=== PATIENT | female | born 1995 | race African-American/Black ===

== ENCOUNTER → 2022-03-13 11:20 | Outpatient (CLI) | payer OTHER, SELFPAY ==
[2022-03-13 14:07] LABS: TSH w/ Reflex to FT4 0.63 uIU/mL (0.47-4.68)
[2022-03-13 14:11] LABS: Prolactin 19.6 ng/mL (3.0-18.6)
[2022-03-13 14:37] LABS: Follicle Stimulating Hormone 5.95 mIU/mL; Luteinizing Hormone 2.97 mIU/mL
== END ==
PROVIDERS: Referring Provider Nurse Practitioner Obstetrics & Gynecology; Visit Provider Nurse Practitioner Obstetrics & Gynecology
DX: N91.4 Secondary oligomenorrhea (principal)
CPT/HCPCS: 36415; 82670; 83001; 83002; 84146; 84443

== ENCOUNTER → 2022-04-19 12:31 | Outpatient (CLI) | payer OTHER, SELFPAY ==
--- NOTE | 2022-04-19 | DI.US.S_ITS ---
PROCEDURE: US PELVIC COMPLETE INDICATIONS: SECONDARY AMENORRHEA TECHNIQUE: Real-time scanning was performed of the pelvic organs, with image documentation. Additional endovaginal scanning was necessary due to incomplete visualization of the adnexal and endometrial structures by transabdominal scanning. COMPARISON: None. FINDINGS: Uterus: Uterus is anteverted and normal in size at 7.0 x 3.7 x 4.4 cm. The myometrium is homogeneous. The endometrium measures 6.4 mm combined thickness. In the lower uterine segment, there is an ovoid slightly hyperechoic mass measuring 0.8 x 0.4 by 0.6 cm with internal vascularity. Just distal to this is a small cystic space. Fundal endometrium is also slightly heterogeneous. Ovaries: The right ovary measures 2.2 x 2.2 x 2.4 cm, with a calculated ovarian volume of 6.0 cc. The left ovary measures 3.0 x 2.6 x 2.1 cm, with a calculated ovarian volume of 8.5 cc. There is a simple follicle measuring 2.3 cm in the left ovary. Less than 12 follicles can be seen in each ovary. No adnexal masses are seen. Other: No pathologic free abdominal or pelvic fluid. IMPRESSION: 1. Echogenic vascular polyp in the lower uterine segment endometrium. 2. Normal ovaries with a dominant left follicle. We strive to produce accurate, complete, and clear reports of imaging services. To assist us in improving patient care, this report was composed using standard report templates and voice recognition software. Therefore, it may contain abnormal punctuation, insertions and/or omissions. Occasional wrong-word or sound-alike substitutions may occur. Though we review the report and make efforts to correct it, we do recommend that the report be read carefully in proper context to recognize any text inaccuracies. Dictated by: Karmen Rashid M.D. on 04/19/2022 at 17:28 Approved by: Karmen Rashid M.D. on 04/19/2022 at 17:32
== END ==
PROVIDERS: Referring Provider Nurse Practitioner Obstetrics & Gynecology; Visit Provider Nurse Practitioner Obstetrics & Gynecology
DX: N91.1 Secondary amenorrhea (principal); N84.0 Polyp of corpus uteri
CPT/HCPCS: 76830; 76856

== ENCOUNTER → 2022-10-08 12:27 | Outpatient (CLI) | payer OTHER, SELFPAY ==
[2022-10-08 13:37] LABS: Influenza A - CEPHEID Flu A NEGATIVE (NEGATIVE); Influenza B - CEPHEID Flu B NEGATIVE (NEGATIVE); Respiratory Syncytial Virus Negative (Negative)
[2022-10-08 13:39] LABS: COVID-19 CEPHEID 4-PLEX PCR Negative (Negative)
== END ==
PROVIDERS: Visit Provider Physician Assistant
DX: R05.9 Cough, unspecified (principal)
CPT/HCPCS: 0241U

== ENCOUNTER → 2023-09-02 14:12 | Outpatient (CLI) | payer OTHER, SELFPAY ==
--- NOTE | 2023-09-02 | DI.US.S_ITS ---
PROCEDURE: US OB >= 14 WEEKS FETUS INDICATIONS: 20 WEEK ANATOMY SCAN OUTSIDE/PRIOR DATING DATA: Last menstrual period (LMP): April 09, 2023. LMP-based estimated date of delivery (HAYDER): January 19, 2024. First dating scan (date and location): Not performed. Estimated date of delivery (HAYDER) from first dating scan: Not applicable. The calculations are made using the clinical HAYDER of January 19, 2024. TECHNIQUE: Real-time scanning was performed of the fetus, with image documentation and biometric measurements. Endovaginal scanning: Not performed COMPARISON: None. FINDINGS: General: A single living intrauterine gestation is present. Presentation: Vertex. Placenta: Placental position is posterior , without previa. Amniotic fluid index: 16.2 cm, normal range is 5-24 cm. Single deepest vertical pocket is 4.4 cm. heart rate: 127 beats per minute. Maternal cervical canal: 3.7 cm long. Normal lower limit is 2.5 cm. biometrics: Biparietal diameter: 4.9 cm, 20 weeks and 6 days Head circumference: 17.9 cm, 20 weeks and 2 days Abdominal circumference: 17.0 cm, 22 weeks and 0 days Femur length: 3.5 cm, 21 weeks and 1 day Clinically estimated gestational age: 20 weeks and 1 day Composite gestational age from present scan: 21 weeks and 1 day Estimated weight and percentile: 423 g, 97th percentile Anatomic survey: Neuro: Ventricles are non-dilated at less than 10 mm. Cisterna magna is normal at 3-11 mm. Cerebellum is normal in size and morphology. Nuchal skin fold: Normal at less than 6 mm between 14-21 weeks gestational age. Face: Nose and lips, facial profile are normal. Spine: No evidence for spina bifida. Heart: 4-chambered heart is present, with normal ventricular outflow tracts. There is a nonspecific 2.8 mm echogenic focus in the left ventricle. Diaphragm: Diaphragm is intact. Stomach: Left-sided stomach is present. Kidneys: No hydronephrosis. Normal is less than 5 mm in 2nd trimester, less than 7 mm in 3rd trimester. Cord: 3-vessel cord has orthotopic insertion. Bladder: Normal in size. Extremities: All 4 extremities identified. IMPRESSION: Single living intrauterine gestation with estimated sonographic gestational age of approximately 21 weeks and 1 day versus approximately 20 weeks and 1 day by last menstrual period. Dating is concordant. Estimated weight of 423 g which correlates with the 97th percentile. There is a 2.8 mm echogenic focus in the left ventricle which is a nonspecific finding and can be seen in to 20% of normal fetuses. This may represent the normal papillary muscle or cordae tendineae. Recommend correlation with maternal risk factors and further evaluation as clinically appropriate. Otherwise, unremarkable routine second trimester anatomic screening survey. We strive to produce accurate, complete, and clear reports of imaging services. To assist us in improving patient care, this report was composed using standard report templates and voice recognition software. Therefore, it may contain abnormal punctuation, insertions and/or omissions. Occasional wrong-word or sound-alike substitutions may occur. Though we review the report and make efforts to correct it, we do recommend that the report be read carefully in proper context to recognize any text inaccuracies. Dictated by: Brian Aldana M.D. on 09/02/2023 at 15:34 Approved by: Brian Aldana M.D. on 09/02/2023 at 15:59
== END ==
PROVIDERS: Referring Provider Nurse Practitioner Obstetrics & Gynecology; Visit Provider Nurse Practitioner Obstetrics & Gynecology
DX: Z34.92 Encounter for supervision of normal pregnancy, unspecified, second trimester (principal); Z3A.20 20 weeks gestation of pregnancy
CPT/HCPCS: 76811

== ENCOUNTER → 2023-09-26 08:01 | Outpatient (CLI) | payer OTHER, SELFPAY ==
[2023-09-26 08:57] LABS: Hematocrit 32.5 % (36-46); Mean Corpuscular Hemoglobin 28.4 PG (26-34); Mean Corpuscular Volume 83.7 fL (80-100); Platelet Count 257 X10^3/uL (150-400); Red Blood Cell Count 3.88 X10^6/uL (4.0-5.2); Red Cell Distribution Width 13.7 % (11.6-14.8); White Blood Cell Count 11.7 X10^3/uL (4.5-11.0)
[2023-09-26 09:38] LABS: Glucose Fasting 80 mg/dL (70-100)
[2023-09-26 10:22] LABS: Glucose 1 Hour 117 mg/dL (70-170)
[2023-09-26 10:31] LABS: Glucose Tol Interpretation INTERPRETATION
[2023-09-26 11:06] LABS: Glucose 2 Hour 103 mg/dL (70-140)
== END ==
PROVIDERS: Referring Provider Nurse Practitioner Obstetrics & Gynecology; Visit Provider Nurse Practitioner Obstetrics & Gynecology
DX: Z34.90 Encounter for supervision of normal pregnancy, unspecified, unspecified trimester (principal); Z13.1 Encounter for screening for diabetes mellitus; Z3A.26 26 weeks gestation of pregnancy
CPT/HCPCS: 36415; 82951; 82952; 85027

== ENCOUNTER → 2023-11-08 11:12 | Outpatient (CLI) | payer OTHER, SELFPAY ==
--- NOTE | 2023-11-08 11:13 | DI.US.S_ITS ---
PROCEDURE: US OB LIMITED INDICATIONS: GROWTH OUTSIDE/PRIOR DATING DATA: First dating scan (date and location): 09/02/2023. Estimated date of delivery (HAYDER) from first dating scan: 01/19/2024. TECHNIQUE: Real-time scanning was performed of the fetus, with image documentation and biometric measurements. Delete COMPARISON: None. FINDINGS: General: A single living intrauterine gestation is present. Presentation: Vertex. Placenta: Placental position is posterior , without previa. Amniotic fluid index: 17.2 cm, normal range is 5-24 cm. Single deepest vertical pocket is 5.0 cm. heart rate: 153 beats per minute. Maternal cervical canal: 4.2 cm long. Normal lower limit is 2.5 cm. biometrics: Biparietal diameter: 30 weeks 4 days Head circumference: 30 weeks 2 days Abdominal circumference: 29 weeks 4 days Femur length: 29 weeks 6 days Clinically estimated gestational age: 29 weeks 5 Composite gestational age from present scan: 30 weeks 1 day Estimated weight and percentile: 1451 g; 39th percentile Other: Not applicable. IMPRESSION: 1. Single living IUP redemonstrated and interval growth is normal. We strive to produce accurate, complete, and clear reports of imaging services. To assist us in improving patient care, this report was composed using standard report templates and voice recognition software. Therefore, it may contain abnormal punctuation, insertions and/or omissions. Occasional wrong-word or sound-alike substitutions may occur. Though we review the report and make efforts to correct it, we do recommend that the report be read carefully in proper context to recognize any text inaccuracies. Dictated by: Byron DA SILVA Interpreted: Capo Soriano MD on 11/08/2023 at 13:15 Transcribed by: WANDA on 11/08/2023 at 13:19 Approved by: Capo Soriano M.D. on 11/08/2023 at 17:05
== END ==
PROVIDERS: Referring Provider Advanced Practice Midwife; Visit Provider Advanced Practice Midwife
DX: O26.843 Uterine size-date discrepancy, third trimester (principal); Z3A.30 30 weeks gestation of pregnancy
CPT/HCPCS: 76815

== ENCOUNTER → 2023-11-14 09:27 | Outpatient (CLI) | payer OTHER, SELFPAY ==
[2023-11-14 10:16] LABS: Influenza A - CEPHEID Flu A NEGATIVE (NEGATIVE); Influenza B - CEPHEID Flu B NEGATIVE (NEGATIVE); Respiratory Syncytial Virus Negative (Negative)
[2023-11-14 10:29] LABS: COVID-19 CEPHEID 4-PLEX PCR POSITIVE (Negative)
== END ==
PROVIDERS: Visit Provider Physician Assistant
DX: R05.1 Acute cough (principal)
CPT/HCPCS: 0241U

== ENCOUNTER → 2023-12-12 14:41 | Outpatient (CLI) | payer OTHER, SELFPAY ==
--- NOTE | 2023-12-12 14:44 | DI.US.S_ITS ---
PROCEDURE: US OB LIMITED INDICATIONS: GROWTH OUTSIDE/PRIOR DATING DATA: Last menstrual period (LMP): 04/09/2023. LMP-based estimated date of delivery (HAYDER): 01/19/2024 First dating scan (date and location): Unknown. Estimated date of delivery (HAYDER) from first dating scan: Unknown. The calculations are made using the clinical HAYDER of 01/19/2024. TECHNIQUE: Real-time scanning was performed of the fetus, with image documentation and biometric measurements. Biophysical profile was also obtained. COMPARISON: [facility], OB LIMITED, 11/08/2023, 11:37. FINDINGS: General: A single living intrauterine gestation is present. Presentation: Vertex. Placenta: Placental position is posterior , without previa. Amniotic fluid index: 11.3 cm, normal range is 5-24 cm. Single deepest vertical pocket is 3.5 cm. heart rate: 126 beats per minute. Maternal cervical canal: 4.0 cm long. Normal lower limit is 2.5 cm. biometrics: Biparietal diameter: 8.4 cm 33 weeks 6 days Head circumference: 30.4 cm 33 weeks 6 days Abdominal circumference: 30.9 cm 34 weeks 6 days Femur length: 6.7 cm 34 weeks 4 days Clinically estimated gestational age: 34 weeks 4 days Composite gestational age from present scan: 34 weeks 2 days Estimated weight and percentile: 2454 g 44th percentile Biophysical profile: IMPRESSION: Single live intrauterine with ultrasound gestational age today of 24 weeks 2 days. ZHANE measures 11.3. We strive to produce accurate, complete, and clear reports of imaging services. To assist us in improving patient care, this report was composed using standard report templates and voice recognition software. Therefore, it may contain abnormal punctuation, insertions and/or omissions. Occasional wrong-word or sound-alike substitutions may occur. Though we review the report and make efforts to correct it, we do recommend that the report be read carefully in proper context to recognize any text inaccuracies. Dictated by: Isabella Rojas M.D. on 12/12/2023 at 20:27 Approved by: Isabella Rojas M.D. on 12/12/2023 at 20:30
[2023-12-12 16:29] LABS: Hematocrit 32.8 % (36-46); Hemoglobin 10.9 g/dL (12.0-16.0); Mean Corpuscular HGB Conc 33.4 % (30-36); Mean Corpuscular Hemoglobin 27.7 PG (26-34); Platelet Count 264 X10^3/uL (150-400); Red Blood Cell Count 3.95 X10^6/uL (4.0-5.2); Red Cell Distribution Width 13.9 % (11.6-14.8); White Blood Cell Count 11.8 X10^3/uL (4.5-11.0)
== END ==
PROVIDERS: Referring Provider Advanced Practice Midwife; Visit Provider Advanced Practice Midwife
DX: O26.843 Uterine size-date discrepancy, third trimester; Z13.1 Encounter for screening for diabetes mellitus; Z3A.34 34 weeks gestation of pregnancy
CPT/HCPCS: 36415; 76815; 85027

== ENCOUNTER 2023-12-15 12:20 | Outpatient (CLI) | payer OTHER, SELFPAY ==
--- NOTE | 2023-12-15 12:42 | PM.OBTRLD ---
Visit Information Visit Information Date of evaluation: 12/15/23 Primary OB Provider: Gudelia Wing On-call OB Provider: Lizz Wood Comments/Additional reasons for admission: Armani Barnes 28yo, @ 35w0d based on 6 week bedside US presenting to triage for elevated blood pressures at work (145/88, 158/93), increased edema, and concerns for decreased movement. Edema is significant in her fee/t/ankles and mild in her hands. Denies headache, vision changes, or RUQ pain. Noticed a decrease in movement today, though she has felt some movement. Denies cramping, vaginal bleeding, or leaking of fluids. Uncomplicated care w/CNMs. Taking a daily LDASA. Vital Signs Vital Signs: Serial BPs: -136/69 -129/63 -133/67 -120/75 -120/69 HR: 92 T: 98.6 F (temporal) PFSH Medical History ADHD Anxiety Cough Viral URI Viral URI with cough Social History marital status: household members: spouse lives independently: Yes caregiver/support person: No housing: apartment Smoking Status: Never smoker Review of Systems Review of Systems ROS: Yes All systems reviewed with the patient and are negative except as otherwise documented Integumentary/Breasts Comments: swelling bilaterally in hands, feet, and ankles. Neurologic Comments: numbness in fingers (all except pinky finger). Exam Vital Signs (past 8 hours): See above. Const General: cooperative, healthy appearing and comfortable Nutritional Appearance: obese Orientation: alert, awake and oriented x3 Chest Chest: normal inspection of the chest Resp Effort & Inspection: normal respiratory effort and able to speak in complete sentences Presentation: vertex Neuro Sensory Exam: other (slight numbness on thumb, index, and middle finger bilaterally) Extrem Right upper extremity: edema (mild edema noted on hands and wrists) Left upper extremity: edema (mild edema noted on hands and wrists) Right lower extremity: edema (on foot, ankle, and lower calves) Details: 1+ Left lower extremity: edema (on foot, ankle, and lower calves) Details: 1+ Objective Labs 12/15/23 13:07 02/01/24 13:07 Labs: NV:CR 0.22 Evaluation Evaluation Baseline heart rate: 120 Variability: Moderate (11-25) monitor accelerations: Present Monitor Decelerations: Absent Category of Tracing: Reactive Comments: Uterine irritability, not felt by client. Diagnosis, Plan/Disposition Final Diagnosis (1) Elevated blood pressure reading without diagnosis of hypertension: Status: Acute (2) Carpal tunnel syndrome during : Status: Acute Plan/Disposition Plan: A: Late [place] Reactive NST Normotensive P: Baseline preeclampsia panel completed and normal. Discharge to home with routine precautions: labor, preeclamsia neurologic sx and decreased FM Continue taking LDASA Recommended elevating feat above heart when possible for lower extremity swelling relief and wearing compression stockings Recommended wearing wrist braces at night for carpal tunnel relief RTC as previously scheduled on 12/21/23
[2023-12-15 13:14] LABS: Add Manual Diff / Slide Review NO; Basophils Absolute Auto 100 /uL (0-100); Basophils Percent Auto 0.7 % (0-2); Eosinophils Absolute Auto 100 /uL (0-450); Hematocrit 31.9 % (36-46); Hemoglobin 10.8 g/dL (12.0-16.0); Lymphocytes Absolute Auto 1600 /uL (1100-4500); Lymphocytes Percent Auto 13.9 % (25-40); Mean Corpuscular Hemoglobin 27.9 PG (26-34); Mean Corpuscular Volume 82.2 fL (80-100); Monocytes Absolute Auto 900 /uL (0-900); Monocytes Percent Auto 8.1 % (3-14); Neutrophils Absolute Auto 8800 /uL (1500-7000); Neutrophils Percent Auto 76.3 % (50-75); Platelet Count 265 X10^3/uL (150-400); Red Blood Cell Count 3.88 X10^6/uL (4.0-5.2); Red Cell Distribution Width 14.1 % (11.6-14.8); White Blood Cell Count 11.6 X10^3/uL (4.5-11.0)
[2023-12-15 13:20] LABS: Creatinine Urine Random 61.3 mg/dL; Protein (Total) Urine Random 14 mg/dL (0-12); Protein Creatinine Ratio Urine 0.22 GRAM/24H
[2023-12-15 13:28] LABS: Aspartate Aminotransferase 22 IU/L (14-36); BUN Creatinine Ratio 11.3 (6-22); Blood Urea Nitrogen 6 mg/dL (7-17); Estimated Glomerular Filt Rate > 60 mL/min (>60); Uric Acid 3.7 mg/dL (2.5-6.2)
[2023-12-15 13:29] LABS: Alanine Aminotransferase 12 IU/L (<35); Albumin 3.2 g/dL (3.5-5.0); Albumin Globulin Ratio 0.9 (1.0-2.8); Alkaline Phosphatase 83 U/L (38-126); Aspartate Aminotransferase 26 IU/L (14-36); Bilirubin Total 0.4 mg/dL (0.2-1.3); Blood Urea Nitrogen 6 mg/dL (7-17); Calcium 8.9 mg/dL (8.4-10.2); Carbon Dioxide 22 mmol/L (22-32); Chloride 105 mmol/L (98-107); Estimated Glomerular Filt Rate > 60 mL/min (>60); Globulin 3.4 g/dL (1.7-4.1); Glucose 86 mg/dL (70-100); HEMOLYSIS < 15 (0-50); Potassium 4.1 mmol/L (3.4-5.1); Sodium 133 mmol/L (137-145); Total Protein 6.6 g/dL (6.3-8.2)
== END 2023-12-15 13:46 | disposition home or self-care (01) ==
LOC: LABOR 13:20 → OB 12-20 06:18
PROVIDERS: Referring Provider Nurse Practitioner Obstetrics & Gynecology; Visit Provider Nurse Practitioner Obstetrics & Gynecology
DX: O26.893 Other specified pregnancy related conditions, third trimester (principal); O12.03 Gestational edema, third trimester; O36.8130 Decreased fetal movements, third trimester, not applicable or unspecified; Z3A.35 35 weeks gestation of pregnancy; R03.0 Elevated blood-pressure reading, without diagnosis of hypertension; G56.00 Carpal tunnel syndrome, unspecified upper limb
CPT/HCPCS: 36415; 59025; 80053; 82570; 84156; 84450; 84550; 85025; G0378; G0379

== ENCOUNTER 2024-01-22 12:47 | Inpatient (IN) | payer OTHER, SELFPAY ==
--- NOTE | 2024-01-22 13:34 | PM.OBHP.1 ---
OB HPI Date/Time Date of admission: 01/22/24 Date Patient Seen: 01/22/24 Time Patient Seen: 13:15 History of Present Condition Chief complaint: labor : 1 Para: 0 Estimated Date of Delivery: 01/19/24 Estimated Gestational Age (weeks): 40w3d Narrative: Armani Barnes is a 28 year old female who is admitted to our L&D unit for early labor and ROM. HAYDER 01/19/2024 was determined by early ultrasound. Armani had an uneventful with CNMs; started her with BMI 41 and did have COVID infection at 31 weeks. Took LDASA throughout when she remembered. Normal anatomy scan with EFW 97%. Growth ultrasounds were performed twice during showing EFW of 39% at 29 weeks and 44% at 34 weeks. Armani believes she began leaking fluid at 1400 yesterday after membrane sweep. Was having mild, irregular contractions all day. Strong recommendation was made 01/21/24 at 2200 when Armani called to report possible ROM to come to unit for evaluation and to confirm ROM. At that time, she refused. [place] a gush of fluid at 0800, contractions more intense and regular today. Again recommended coming in this morning at 0900; she opted to arrive at 1300 today. Now feeling contractions about every 5 minutes, can talk through them. Baby has been moving normally throughout early labor. Armani's goal is to have a low-intervention vaginal . She agreed to pitocin augmentation but declined SVE at this time but declines SVE right now. Denies headache, visual changes, epigastric pain. Feeling contractions low in her pelvis. History of Present care: good care, initiated at week # (6), number of visits (12) and pounds weight gain (43) Dating criteria: based on 1st trimester US only Ultrasounds: normal 1st trimester US and normal mid trimester US Obstetrical complications: none Medical complications: psychiatric (ADHD) and other (Covid at 31 weeks, Pre- BMI 41.) Preadmission Labs Blood type: A (+) positive -: Antibody screen: negative, Cystic fibrosis screen: unknown, GBS status: positive, HBsAG: negative, HIV: negative, HSV 1: unknown, HSV 2: unknown and RPR/VDLR: negative -: Chlamydia screen: not detected and Gonorrhea screen: not detected -: Rubella: immune and Varicella: immune HCT: 32.8 (@ 34w) HCAB: negative PAP: Normal (09/2022) Quad screen: Normal (MsAFP negative at 15w) Cell-free DNA: Negative, XX Urine: negative UC at 10w Narrative: 2 hour GTT: Fastin 1 hour: 117 2 hour: 103 Prior (ies) History: none Evaluation Evaluation Baseline heart rate: 130 Variability: Moderate (11-25) monitor accelerations: Present Monitor Decelerations: Absent Contraction Frequency (minutes): 5 Uterine Contraction Intensity: Mild Status: Category l Non-invasive Membranes Rupture Test: positive Comments: ROM time unclear; possibly as long ago as 1400 01/21/24. No gushes until this morning at 0800. Positive amnisure on admission (1300 today). SVE declined. [facility] Medical History (Updated 01/22/24 @ 13:53 by uJlita Easton CNM, [place]) Supervision of normal first in third trimester ADHD Anxiety Cough Viral URI Viral URI with cough Social History marital status: household members: spouse lives independently: Yes caregiver/support person: No housing: apartment Smoking Status: Never smoker Meds Home Medications and Allergies Home Medications Medication Instructions Recorded Confirmed Type aspirin 81 mg tablet,delayed 81 mg PO DAILY 01/22/24 01/22/24 History release Allergies Allergy/AdvReac Type Severity Reaction Status Date / Time pollen extracts Allergy Mild ITCHING Verified 01/22/24 13:58 banana Allergy Severe Anaphylaxis Uncoded 01/22/24 13:58 watermelon Allergy Severe Anaphylaxis Uncoded 01/22/24 13:58 NKDA Allergy Unknown Uncoded 01/22/24 13:58 Review of Systems Review of Systems Narrative: All negative except as stated in HPI. OB Exam Vital signs Blood Pressure: 138/75 Pulse Rate: 85 Respiratory Rate: 16 Temperature: 96.8 F Resp Effort & Inspection: normal respiratory effort and able to speak in complete sentences Auscultation: clear to auscultation bilaterally Cardio Rate: regular rate Rhythm: regular rhythm Heart Sounds: S1 normal, S2 normal and normal, physiologic split S2 Presentation: vertex Estimated Weight (lbs): 8 Amniotic Fluid: clear Objective Labs 01/22/24 14:00 01/22/24 14:25 Labs: Protein Creatinine ratio is 0.3 but without hypertension. Assessment and Plan Assessment and Plan Assessment and Plan narrative: at 4ow3d by early ultrasound GBS positive FHR Cat 1 Membranes ruptured, assuming 24 hours at 1400 today. Afebrile Rh positive History of ADHD Pre- BMI 41 History of Chlamydia 2021 Plan: Admit to labor unit Administer ampicillin for GBS prophylaxis PET panel with admission labs for baseline Recommend continous monitoring due to prolonged ROM. GC/CT ordered due to last swab collected 09/2022 as test of cure for chlamydia infection. Recommend augmentation of labor with misoprostol or pitocin due to length of PROM. Sumr agrees to pitocin. Bedside ultrasound to confirm vertex presentation. Temp & BP q 1-2 hours. Anticipate NSVB.
[2024-01-22 14:04] VITALS: BP 138/75; PULSE 85; RESP 16; TEMP 36
[2024-01-22] MEDS: LACTATED RINGERS 1,000 ML 100 ML IV (14:30)
[2024-01-22] MEDS: AMPICILLIN 2,000 MG in SODIUM CHLORIDE 0.9% 100 ML 200 MG IV (14:30)
[2024-01-22 14:37] LABS: Add Manual Diff / Slide Review NO; Basophils Absolute Auto 100 /uL (0-100); Basophils Percent Auto 0.7 % (0-2); Eosinophils Absolute Auto 200 /uL (0-450); Eosinophils Percent Auto 1.2 % (2-4); Hematocrit 34.9 % (36-46); Hemoglobin 11.6 g/dL (12.0-16.0); Lymphocytes Absolute Auto 1800 /uL (1100-4500); Lymphocytes Percent Auto 14.2 % (25-40); Mean Corpuscular HGB Conc 33.3 % (30-36); Mean Corpuscular Hemoglobin 28.2 PG (26-34); Mean Corpuscular Volume 84.6 fL (80-100); Monocytes Absolute Auto 1100 /uL (0-900); Monocytes Percent Auto 8.7 % (3-14); Neutrophils Absolute Auto 9400 /uL (1500-7000); Neutrophils Percent Auto 75.2 % (50-75); Platelet Count 294 X10^3/uL (150-400); Red Blood Cell Count 4.13 X10^6/uL (4.0-5.2); Red Cell Distribution Width 14.8 % (11.6-14.8); White Blood Cell Count 12.5 X10^3/uL (4.5-11.0)
[2024-01-22 14:50] LABS: Alanine Aminotransferase 12 IU/L (<35); Albumin 3.5 g/dL (3.5-5.0); Alkaline Phosphatase 111 U/L (38-126); Aspartate Aminotransferase 23 IU/L (14-36); BUN Creatinine Ratio 16.1 (6-22); Bilirubin Total 0.3 mg/dL (0.2-1.3); Blood Urea Nitrogen 10 mg/dL (7-17); Calcium 9.4 mg/dL (8.4-10.2); Carbon Dioxide 24 mmol/L (22-32); Chloride 109 mmol/L (98-107); Estimated Glomerular Filt Rate > 60 mL/min (>60); Globulin 3.5 g/dL (1.7-4.1); Glucose 79 mg/dL (70-100); HEMOLYSIS < 15 (0-50); Potassium 4.4 mmol/L (3.4-5.1); Sodium 136 mmol/L (137-145)
[2024-01-22] MEDS: OXYTOCIN PREMIX 30 UNIT/500 ML PLAST..BAG IV (14:59)
[2024-01-22 16:49] LABS: Protein (Total) Urine Random 24 mg/dL (0-12)
--- NOTE | 2024-01-22 17:45 | P.PNOB_ITS ---
Date/Time Date Patient Seen: 01/22/24 Time Patient Seen: 18:27 Pain Control Pain control: tolerating well Comments: Armani is working hard in bed in various positions. Well supported by her . Their sample finisher is on her way. Pelvic Exam Dilation (cm): 3 Effacement (%): 90 station: -2 Amniotic membrane status: Ruptured Comments: BP 132/74 HR: 78 RR: 18 Temp 35.8 F Contractions Contractions on admission: irregular Monitor mode: External Pitocin rate (mU/min): 4 Contraction frequency (min): 3 Contraction duration (min): 60 Contraction pattern: Irregular Contraction intensity: Moderate Status status: Category ll Heart Rate Baseline: 115 Monitor Accelerations: Present Monitor Decelerations: Periodic Monitor Variability: Moderate Assessment and Plan Assessment: other (Labor augmentation of early labor; ,GBS pos, adequate treatment) Plan: continuous present management (turn up pitocin by 1 mu/min PRN)
[2024-01-22] MEDS: AMPICILLIN 1,000 MG in SODIUM CHLORIDE 0.9% 100 ML 200 MG IV ×2 (18:38→23:14)
--- NOTE | 2024-01-22 20:30 | PM.OBPNLAB ---
Date/Time Date Patient Seen: 01/22/24 Time Patient Seen: 20:30 Pain Control Pain control: tolerating well Comments: Sumr is on hands and knees with peanut ball surrounded by FOB and fabric machine operator providing labor support. Pelvic Exam Dilation (cm): 3 Effacement (%): 90 station: -2 Amniotic membrane status: Ruptured (x 32hr, clear fluid) Comments: Cervical exam deferred. Contractions Date/Time contractions began: Contractions are tachysystolic and are occurring every 2min lasting 60 sec. Monitor mode: External Pitocin rate (mU/min): 5 Contraction frequency (min): 2 Contraction duration (min): 1 Contraction pattern: Regular Contraction intensity: Moderate Status status: Category ll Heart Rate Baseline: 125 Monitor Accelerations: Present Monitor Decelerations: Late (single late) Monitor Variability: Moderate Assessment and Plan Assessment: other (early labor) Comments: A: 28yo, @ 40w2d Early labor GBS positive (prophylaxis adequate) Rh positive FHR Cat II P: Restart pitocin when contractions space out. Anticipate NSVB.
--- NOTE | 2024-01-22 23:40 | P.PNOB_ITS ---
Date/Time Date Patient Seen: 01/22/24 Time Patient Seen: 23:20 Pain Control Comments: Armani is leaning on the side of the bed with FOB and drum sprayer providing labor support. Sumr is feeling discouraged and tearful about labor progression and ability to tolerate labor pain. Expressed concern about ability to cope with contractions while on pitocin. Is interested in epidural if she is to re- initiate pitocin titration. Pelvic Exam Dilation (cm): 3.5 Effacement (%): 90 station: -2 Amniotic membrane status: Ruptured (x 34hr, clear fluid) Comments: VS: BP- 119/59 HR- 90 bpm T- 37.1C temporal Contractions Date/Time contractions began: Pitocin was 5mu/min and was turned off at 1955 due to uterine tachysystole. Has had Cat II FHR with moderate variability with periods of mild decelerations (late and prolonged) with return to baseline since 1999. Currently having moderate intensity, mild by palpation contractions every 2-3 min, lasting 1 minute. Monitor mode: External Pitocin rate (mU/min): 0 Contraction frequency (min): 3 Contraction duration (min): 1 Contraction pattern: Regular Contraction intensity: Moderate (mild by palpation) Status status: Category ll Heart Rate Baseline: 125 Monitor Accelerations: Present Monitor Decelerations: Late (mild lates) Monitor Variability: Moderate Assessment and Plan Assessment: other (early labor) Comments: A: 28yo, @ 40w3d Early labor ROM x 34hr (afebrile; no s/sx of infection) GBS positive, adequate prophylaxis Rh positive FHR Cat II P: Cervical exam performed with patient's consent. Discussed minimal cervical change/ lack of progression into active labor. Discussed concerns with FHR in the context of early labor and potential need for if FHR continues to concern. Recommended re-initiating pitocin titration. Gideonr is concerned about initiating pitocin due to pain concerns. Is interested in an epidural. Anesthesiologist consulted and at bedside. Called OB back up to consult re: labor and FHR status. Plan to restart pitocin after epidural placement. Julita Easton, SMALL BUSINESS SALES REPRESENTATIVE, [place]
--- NOTE | 2024-01-23 01:16 | P.PN_ITS ---
Objective Labs 01/24/24 05:18 01/22/24 14:25 Labs: Laboratory Results - last 24 hr 01/22/24 01/22/24 01/22/24 14:00 14:25 16:15 WBC 12.5 H RBC 4.13 Hgb 11.6 L Hct 34.9 L MCV 84.6 MCH 28.2 MCHC 33.3 RDW 14.8 Plt Count 294 Neut % (Auto) 75.2 H Lymph % (Auto) 14.2 L Fleming % (Auto) 8.7 Eos % (Auto) 1.2 L Baso % (Auto) 0.7 Neut # (Auto) 9400 H Lymph # (Auto) 1800 Fleming # (Auto) 1100 H Eos # (Auto) 200 Baso # (Auto) 100 Sodium 136 L Potassium 4.4 Chloride 109 H Carbon Dioxide 24 BUN 10 Creatinine 0.62 Estimated GFR > 60 BUN/Creatinine Ratio 16.1 Glucose 79 Uric Acid 5.0 Calcium 9.4 Total Bilirubin 0.3 AST 23 ALT 12 Alkaline Phosphatase 111 Total Protein 7.0 Albumin 3.5 Globulin 3.5 Albumin/Globulin Ratio 1.0 U Random Total Protein 24 H Urine Creatinine 78.0 Protein/Creatinin Ratio 0.30 Blood Type A Positive Antibody Screen Negative [facility] Medical History (Updated 01/24/24 @ 06:02 by Gudelia Wing CNM) Supervision of normal first in third trimester ADHD Anxiety Cough Viral URI Viral URI with cough Social History marital status: household members: spouse lives independently: Yes caregiver/support person: No housing: apartment Smoking Status: Never smoker
--- NOTE | 2024-01-23 01:16 | PM.AN.REGBLK ---
Regional Block Pre-procedure Procedure: Continuous Lumbar Epidural for L&D Attending OB provider: Julita Easton PMH/ROS narrative: 28yo full-term in labor requesting epidural. See pre-anesthesia assessment for additional information. ASA Class: III Labs: Hct 34.9 % (36-46) L 01/22/24 14:00 Plt Count 294 X10^3/uL (150-400) 01/22/24 14:00 Medications: Current Medications Generic Name Dose Route Start Last Admin Trade Name Freq PRN Reason Stop Dose Admin Calcium Carbonate 1,000 mg 01/22/24 13:29 Calcium Carbonate 500 Mg Tab PO Q4HR PRN Dyspepsia Carboprost Tromethamine 250 mcg 01/22/24 13:29 Carboprost 250 Mcg/Ml Ampul IM Q90M PRN Bleeding Diphenhydramine HCl 25 mg 01/23/24 01:14 Diphenhydramine 50 Mg/Ml Vial IV Q10M PRN Pruritis Ephedrine Sulfate 10 mg 01/23/24 01:14 Ephedrine 50 Mg/Ml Vial IV Q5M PRN Blood pressure decrease more than 20% of baseline. Fentanyl 100 mcg 01/22/24 13:29 Fentanyl 100 Mcg/2 Ml Inj IV Q1H PRN Pain, Severe (7-10) Oxytocin/Lactated Ringer's 30 unit in 500 mls @ 200 mls/hr 01/22/24 13:29 Oxytocin Premix IV CONT PRN Bleeding Protocol Tranexamic Acid 1,000 mg/ 100 mls @ 200 mls/hr 01/22/24 13:29 Sodium Chloride IV NOW PRN Bleeding Oxytocin/Lactated Ringer's 30 unit in 500 mls @ 2 mls/hr 01/22/24 13:30 01/22/24 14:59 Oxytocin Premix IV 2 milliunit/min TITRATE DALY 2 mls/hr Administration Protocol 2 MILLIUNIT/MIN Lactated Ringer's 1,000 mls @ 100 mls/hr 01/22/24 13:30 01/22/24 14:30 Lactated Ringers IV 100 mls/hr CONT DALY Administration Ampicillin Sodium 1,000 mg/ 100 mls @ 200 mls/hr 01/22/24 18:00 01/22/24 23:14 Sodium Chloride IV 200 mls/hr Q4H DALY Administration FENT 2MCG/ML BUPIV 0.125% EPI 200 mcg in 100 mls @ 6 mls/hr 01/23/24 01:15 Fentanyl/Bupiv/Ns 2mcg/Ml - 0.125% EPIDURAL CONT DALY Lidocaine HCl 20 ml 01/22/24 13:29 Lidocaine 1% 20 Ml INJ INTRA-OP PRN Post Delivery Methylergonovine Maleate 0.2 mg 01/22/24 13:29 Methylergonovine 0.2 Mg Tablet PO Q6HR PRN Heavy Bleeding Methylergonovine Maleate 0.2 mg 01/22/24 13:29 Methylergonovine 0.2 Mg/Ml Vial IM NOW PRN Bleeding Misoprostol 800 mcg 01/22/24 13:29 Misoprostol 200 Mcg Tablet CA NOW PRN Bleeding Misoprostol 400 mcg 01/22/24 13:29 Misoprostol 200 Mcg Tablet SL NOW PRN Bleeding Nalbuphine HCl 2.5 mg 01/23/24 01:14 Nalbuphine 20 Mg/Ml Ampul IV Q10M PRN Pruritis Naloxone HCl 0.2 mg 01/22/24 13:29 Naloxone 0.4 Mg/Ml Vial IV Q2MIN PRN Opiate Reversal Ondansetron HCl 4 mg 01/22/24 13:29 Ondansetron 4 Mg/2 Ml Inj IV Q4HR PRN Nausea And Vomiting Oxytocin 10 unit 01/22/24 13:29 Oxytocin 10 Unit/Ml Vial IM NOW PRN Bleeding Allergies: Allergies Allergy/AdvReac Type Severity Reaction Status Date / Time pollen extracts Allergy Mild ITCHING Verified 01/22/24 13:58 banana Allergy Severe Anaphylaxis Uncoded 01/22/24 13:58 watermelon Allergy Severe Anaphylaxis Uncoded 01/22/24 13:58 NKDA Allergy Unknown Uncoded 01/22/24 13:58 Procedure Insertion date: 01/23/24 Insertion time: 00:21 Prep/Local: 1% lidocaine (chloraprep) Interspace: L4-5 Patient position: sitting Needle: 18 gauge Fartuntead Loss of resistance with: saline BASIA at (cm): 8 Catheter placed at SKIN (cm): 15 Catheter in SPACE (cm): 7 Sensory level: CSE with 25g spinal needle at 00:20; 0.4 ml of Marcaine 0.75% intrathecally Insertion: Yes CSF, No Blood, No Paresthesia with insertion, No Paresthesia with injection and No Test dose reaction Initial Medications TEST DOSE time: 00:22 TEST DOSE: 1.5% lidocaine with epinephrine 1:200k (mL): 3 BOLUS DOSE time: 00:23 BOLUS DOSE (mL): 2 BOLUS DOSE med: other (Same as test dose) Infusion INFUSION: 0.125% bupivacaine and with fentanyl 2 mcg/mL Initial rate (mL/hr): 10 Subsequent interventions: 00:51 Episode of relative hypotension with decreased FHTs. Ephedrine 10 mg IV given with resolution of sx. 02:34 Called by L&D--decision to proceed to C/S for arrested dilatation, intolerance of labor. 03:00 Epidural working well. Pt not feeling contractions at all. Will plan to use for C/S. 03:25 End labor epidural anesthesia. Transporting to OR for C/S. Post-procedure Anesthesia date START: 01/23/24 Anesthesia time START: 00:15 Anesthesia date END: 01/23/24 Anesthesia time END: 03:25 Post-procedure Anesthesia Assessment: Yes CV function: HR/BP stable, Yes Resp function: RR/sat/airway adequate, Yes Post-op hydration adequate, Yes Pain control adequate, Yes Nausea & vomiting absent, Yes Temperature > 36 C, Yes Mental status appropriate and No Anesthesia complications
--- NOTE | 2024-01-23 02:31 | PM.OBPNLAB ---
Date/Time Date Patient Seen: 01/23/24 Time Patient Seen: 02:31 Pain Control Pain control: epidural Comments: Gideonr is comfortable with epidural. Consents to after discussing r/b/a of continuing labor and the risks to baby. Pelvic Exam Dilation (cm): 3.5 Effacement (%): 90 station: -2 Amniotic membrane status: Ruptured (x 36hr, clear fluid) Comments: Caput noted on vertex. Vertex not well applied to cervix with exam. Contractions Date/Time contractions began: Rn attempted to turn pitocin back on but baby continues to have decelerations even without contractions. Monitor mode: External Contraction frequency (min): 3 Contraction pattern: Regular Contraction intensity: Moderate Status status: Category ll Heart Rate Baseline: 130 Monitor Accelerations: Present Monitor Decelerations: Late and Prolonged Monitor Variability: Moderate Assessment and Plan Assessment: other (Not in labor) Plan: Comments: at 40w4d by early US FHR Cat 2 Unable to run pitocin Cervix unchanged since 1829 Not in labor Call in Dr. Zelaya for OB consult and discuss option for with [facility]ani, who consents.
--- NOTE | 2024-01-23 03:07 | SUR.OPER ---
Supine on Padded OR bed, head on pillow, safety belt at thigh, arms secured on padded arm boards at <90 degrees abduction. Bump under right buttock. Legs uncrossed with pillow under knees, gel pad to heels, tape over blanket to lower legs.
[2024-01-23] MEDS: CITRIC ACID/SODIUM CITRATE 15 ML SOLUTION 30 ML PO (03:21)
[2024-01-23] MEDS: CEFAZOLIN VIAL 3 GM in SODIUM CHLORIDE 0.9% 100 ML IV (03:30)
[2024-01-23] MEDS: ACETAMINOPHEN IV 1,000 MG/100 ML VIAL 400 MG IV (04:32)
[2024-01-23 04:49] LABS: Base Excess Cord Venous Blood -5 (-7.7-1.9); Cord Venous Blood PCO2 43.3 (27-56); Cord Venous Blood PO2 24 (17-41); Cord Venous Blood pH 7.301 (7.25-7.45); HCO3 Cord Venous Blood 21.4
[2024-01-23 04:50] LABS: O2 Saturation Cord Venous Bld 37 (14-75)
[2024-01-23 05:05] VITALS: BP 130/71; PULSE 115; RESP 21; TEMP 36.9; O2SAT 96
[2024-01-23 05:11] VITALS: BP 111/60; PULSE 117; RESP 19; O2SAT 97
[2024-01-23 05:21] VITALS: BP 118/94; PULSE 120; RESP 92; O2SAT 98
--- NOTE | 2024-01-23 05:26 | PM.OBCS.1 ---
Operative Date/Time/Diagnoses Date of procedure: 01/23/24 Time of procedure: 03:47 Pre-op diagnosis: 1.40w 4d 2. Arrest of dilitation 3. Intolerance of labor Post-op diagnosis: other (Same plus live female infant Apgars 9/9 occult prolapse of cord) Procedure & Clinicians Procedure: Primary low-transverse section Same procedure as scheduled: Yes Indications: Arrest of dilatation intolerance of labor Surgeon: Alberto Zelaya Stenotype Machine Operator: Julita Easton Reason for Stenotype Machine Operator: Experienced 1st assistant child care teacher for section. She provided expert retraction suction as well as providing exposure. Anesthesia Type: Epidural Operative Notes Findings: Live female Apgars 9 9 vertex presentation right occiput posterior and occult prolapsed cord Closure Type: primary Intraoperative meds administered: Acetaminophen, Duramorph and Ketorolac Applied: Catheter Estimated Blood Loss (mL): 600 Blood products transfused: none Procedure in detail: Following reviewing the chart patient has noticed not have any progress over the last several hours. She was 3-3-1/2 cm. She was also noted have episodes of variable deceleration some of which were deep. She was unable to tolerate regular contractions. Because of the failure to progress as well as intolerance to labor it was decided proceed on to section. This was discussed with the patient and her spouse. Risks and benefits were explained to the patient including those but not limited to bleeding, infection, injury to the pelvic organs. This include the uterus, to tubes, ovaries, as well as bowel, bladder, and ureters. She is also aware of the potential DVT with PE as well as postop adhesions which could cause pain, obstruction and infertility. Patient was taken back to the operating room which time she was identified. She was placed on the operating table her a roll was placed in the right hip. At this point because of her increased abdominal girth a pannus lifting device was placed without difficulty. Patient was then prepped and draped in the usual fashion. A time-out was performed at which concerns were addressed both by anesthesia commissioner public works as well as the operating surgeon. The procedure was commenced with a Pfannenstiel incision which carried down through subcutaneous tissue fascia fascia incised transversely using Lopez scissors. The dissection was carried superiorly and inferiorly both bluntly and sharply the peritoneum was entered high care was taken avoid any injury to bowel or bladder. At this point a bladder flap was developed using both blunt and sharp dissection a low transverse uterine incision was then accomplished using a 10. Blade bandage scissors well as finger stretch spread technique clear amniotic fluid was noted upon entering the peritoneum the amniotic membranes. At this point the head was noted to be in right occiput posterior as well as the cord was noted to be on the left-hand side down near the face of the . At this point the head of the infant the left out of the pelvis the oropharynx was bulb suctioned and the remainder of the was delivered without difficulty the infant was allowed to be on the umbilical a minute half before clamping was achieved. At this point the cord was doubly clamped divided and the infant handed to the nursery team and commissioner public works standing by. At this point cord blood samples were obtained the placenta was then manually removed from the uterine cavity. The uterus exteriorized and then wrapped in a moist lap and cleansed the internal portion with a dry lap. At this point the incision was closed using running locking suture of November 0. Vicryl as well as a imbricating layer of 0. Vicryl this was inspected and there was evidence of good hemostasis. At this point the uterus was tipped forward and the cul-de-sac was then suctioned free of any clot estimated blood loss was then obtained at this time. The cul-de-sac was then irrigated copious amounts of sterile saline and the uterus was then delivered back in the abdominal cavity the gutters were likewise irrigated. At this point the incision was inspected and there was once again no evidence of bleeding. The peritoneum was closed utilizing 2-0 Vicryl. The rectus was reapproximated with figure eights of 2-0 Vicryl. This was inspected no bleeding was noted. At this point the. The fascia was closed utilizing 0. looped PDS in a running suture. The subcutaneous tissue was noted to be freed of any bleeding and then this was closed utilizing 2-0 Vicryl. The incision itself closed using 4 0 Monocryl in a subcuticular stitch. Tincture of benzoin as well as Steri-Strips were then applied at this point a wound VAC was placed because of the thickened abdominal wall thickness. Patient tolerated procedure well was taken recovery room in stable condition sponge and needle counts were correct this is a dictation on patient Armani Barnes. thank you very much Complications: none Post-operative Condition: stable Disposition: other (Ob murphy) Aftercare: routine postop
[2024-01-23 07:42] VITALS: BP 138/75
--- NOTE | 2024-01-23 09:00 | PM.PROC.1 ---
Procedures Date/Time Date of procedure: 01/23/24 Time of procedure: 04:00 General Procedure description: Garment Liner Documentation I assisted the OB personal banking assistant in the section for this patient. My responsibilities included retracting and suctioning, providing fundal pressure during delivery and following with suture during closure. Please see the OB's note for details of the surgery.
[2024-01-23] MEDS: KETOROLAC 30 MG/ML VIAL IV ×2 (11:36→17:45)
[2024-01-23] MEDS: ACETAMINOPHEN 325 MG TABLET 650 MG PO (17:46)
[2024-01-24] MEDS: ACETAMINOPHEN 325 MG TABLET 650 MG PO ×3 (00:43→11:48)
[2024-01-24] MEDS: KETOROLAC 30 MG/ML VIAL IV (00:43)
[2024-01-24] MEDS: LANOLIN OINT 7 GM 1 APPLIC TOP (00:44)
--- NOTE | 2024-01-24 03:52 | PM.OBDS.1 ---
Discharge Providers Provider Date of admission: 01/22/24 12:47 Discharge Date: 01/24/24 Primary care physician: Doctor Trena MD Consults: 01/22/24 13:29 Consult to Anesthesiology Urgent Comment: Consulting Provider: Anesthesiologist Reason for consultation: Epidural 01/24/24 11:55 Consult to Bandage Winding Machine Operator Routine Comment: Discharge provider: Gudelia Wing CNM Summary Hospital Course Date Patient Seen: 01/24/24 Time Patient Seen: 05:00 Diagnoses: Primary for arrest of active phase and intolerance of labor Hospital Course: PPD1: Stable s/p PC/S. Voiding, ambulating and independently. Tolerating a general diet. Pain is well controlled without narcotics. is going well with nipple shield use on the left side for flat/inverted nipple. Abdominal incision dressing is intact without concerns. She is eager for discharge to home and her agrees that they feel ready to bring their baby home today. Peripartum Data Delivery Method: Section Laceration Description: None Episiotomy description: None Procedures: primary complications: none 1: Gender: Female Disposition of : home Discharge Diagnosis (1) Status post primary low transverse section: Status: Acute (2) Anemia, : Status: Acute Problem Details: Pt has OTC slow Fe supplementation with instructions to continue Status at Discharge Cognitive/behavioral status at discharge: oriented and calm Functional status at discharge: independent ambulation Overall status at discharge: patient is not back to baseline Time Spent with Patient Time attestation: Total time spent providing and/or coordinating discharge services: Time spent: Less than 30 minutes Objective Labs 01/24/24 05:18 01/22/24 14:25 Labs: Laboratory Results - last 24 hr 01/23/24 04:00 Cord VBG pH 7.301 Cord VBG pCO2 43.3 Cord VBG pO2 24 Cord VBG HCO3 21.4 Cord VBG Base Excess -5 Cord VBG O2 Sat 37 Exam Vital Signs (past 8 hours): Oxygen Delivery Method Room Air BP 120/73, HR 84bpm, RR 17/min, T 98.3F Temproal Chest Chest: normal inspection of the chest Breast inspection: normal inspection of the breasts Resp Effort & Inspection: normal respiratory effort and able to speak in complete sentences Auscultation: clear to auscultation bilaterally Cardio Palpation: normal PMI Rate: regular rate Rhythm: regular rhythm Other: Fundus firm at U-1, lochia scant without clots. Skin Other: LTAI wound vac removed and aquacel dressing applied. Discharge Plan Discharge Plan Patient Disposition: Home Discharge orders & Medications Prescriptions: New acetaminophen 325 mg Tablet 650 mg PO Q6HR PRN (Reason: Pain, Mild (1-3)) 14 Days Qty: 60 1RF docusate sodium 100 mg Capsule 100 mg PO DAILY 14 Days Qty: 14 0RF ibuprofen 600 mg Tablet 600 mg PO Q6HR PRN (Reason: Pain, Mild (1-3)) 14 Days Qty: 60 1RF oxycodone 5 mg Tablet 5 mg PO Q4HR PRN (Reason: Pain, Moderate (4-6)) 7 Days Qty: 8 0RF Discontinued aspirin [Aspir-81] 81 mg Tablet,Delayed Release (Dr/Ec) 81 mg PO DAILY Follow up/Referrals: Gudelia Wing CNM [Advanced Level Vial Setter] - (1 week dressing removal 01/30/24 @ 0900 2 week phone call 02/07/24 @ 1245 6 week office 03/06/24 @ 1245) Doctor Albrecht MD [Primary Care Provider] - Diet/Activity/Treatments Diet: Diet as Tolerated and Regular Activity: bed rest x 2 weeks, no lifting or driving x 4 weeks, pelvic rest x 6 weeks Skin/Wound/Dressing Care Report to your healthcare provider any signs of infection, such as:: chills, fever, increased pain, unusual drainage and unusual redness Dressing: clean, dry and intact Aquacel Visit Report/Discharge Packet Instructions: Depression Stand Alone Forms: Patient Portal/API, Stroke Signs & Symptoms Discharge Data Primary Care Provider: Doctor Trena
[2024-01-24 05:32] LABS: Add Manual Diff / Slide Review NO; Basophils Absolute Auto 100 /uL (0-100); Basophils Percent Auto 0.7 % (0-2); Eosinophils Absolute Auto 100 /uL (0-450); Eosinophils Percent Auto 0.5 % (2-4); Hematocrit 28.7 % (36-46); Hemoglobin 9.7 g/dL (12.0-16.0); Lymphocytes Absolute Auto 2500 /uL (1100-4500); Lymphocytes Percent Auto 16.6 % (25-40); Mean Corpuscular HGB Conc 33.7 % (30-36); Mean Corpuscular Hemoglobin 28.1 PG (26-34); Mean Corpuscular Volume 83.4 fL (80-100); Monocytes Absolute Auto 1300 /uL (0-900); Monocytes Percent Auto 8.9 % (3-14); Neutrophils Absolute Auto 11000 /uL (1500-7000); Neutrophils Percent Auto 73.3 % (50-75); Platelet Count 246 X10^3/uL (150-400); Red Blood Cell Count 3.45 X10^6/uL (4.0-5.2); Red Cell Distribution Width 15.5 % (11.6-14.8); White Blood Cell Count 15.1 X10^3/uL (4.5-11.0)
[2024-01-24] MEDS: IBUPROFEN 600 MG TABLET PO ×2 (06:18→11:48)
[2024-01-24] MEDS: DOCUSATE 100 MG CAPSULE PO (11:49)
[2024-01-24 14:03] VITALS: BP 112/48; PULSE 85; RESP 16; TEMP 36.7
[2024-01-25 03:59] LABS: Chlamydia trachomatis NAA Negative (Negative); Neisseria gonorrhoeae NAA Negative (Negative)
== END 2024-01-24 13:20 | disposition home or self-care (01) | DRG 788 ==
PROVIDERS: Nurse Practitioner Obstetrics & Gynecology; Obstetrics & Gynecology; Admitting Provider Advanced Practice Midwife; Referring Provider Advanced Practice Midwife; Visit Provider Advanced Practice Midwife
PROC: 10D00Z1 Extraction of Products of Conception, Low, Open Approach (ICD-10-PCS; CPT 59514; principal; 2024-01-23 04:00)
DX: O99.824 Streptococcus B carrier state complicating childbirth (principal); O62.1 Secondary uterine inertia; O76 Abnormality in fetal heart rate and rhythm complicating labor and delivery; Z3A.40 40 weeks gestation of pregnancy; Z37.0 Single live birth
CPT/HCPCS: 36415; 59050; 80053; 82570; 82803; 84112; 84156; 84550; 85025; 86850; 86900; 86901; 87491; 87591; G0379; J0136; J0290; J0690; J1100; J1885; J2274; J2405; J2590